=== PATIENT | male | born 1940 | race African-American/Black ===

== ENCOUNTER 2018-08-05 10:26 | Day surgery (SDC) | payer MEDICARE ==
[~2018-08-05 10:26] MED LIST: CHONDR SU A NA/HYALUR INTRAOC KIT (SURGICARE) ONE; EPINEPHRINE INJ/PF 1 MG/1 ML AMPULE ONE; KETOROLAC TROMETHAMINE 0.45% 4 DROP/0.4 ML DROPERETTE OS PRN; LIDOCAINE 1% INJ-PF (10 MG/ML) 30 ML SDV ONE; MIDAZOLAM 2 MG/2 ML INJ ONE; TOBRAMYCIN SULFATE/DEXAMETH OPH OINTMENT 3.5 GM ONE
[2018-08-05] MEDS: TETRACAINE HCL 0.5% OPH SOLN 0.6 ML DROPERETTE OS PRN ×3 (10:41→11:09)
[2018-08-05] MEDS: BESIFLOXACIN HCL 0.6% OPH SUSP 5 ML BOTTLE OS PRN ×4 (10:42→11:30)
[2018-08-05] MEDS: TROPICAMIDE 1% OPH SOLN 3 ML OS PRN ×3 (10:42→10:59)
[2018-08-05] MEDS: CYCLOPENTOLATE 0.2%/PHENYLEPHRINE 1% OPH SOLN 2 ML OS PRN ×3 (10:42→10:59)
== END 2018-08-05 12:10 | disposition home or self-care (01) ==
LOC: SC 10:26
PROVIDERS: ATTEND Ophthalmology
DX: H25.12 Age-related nuclear cataract, left eye (principal); F17.210 Nicotine dependence, cigarettes, uncomplicated; I10 Essential (primary) hypertension; N40.0 Benign prostatic hyperplasia without lower urinary tract symptoms; E78.00 Pure hypercholesterolemia, unspecified; K21.9 Gastro-esophageal reflux disease without esophagitis; Z88.0 Allergy status to penicillin; Z79.899 Other long term (current) drug therapy; Z79.82 Long term (current) use of aspirin
CPT/HCPCS: 66984; V2630; J2250; J3490 ×3; A9270; J0171; 142

== ENCOUNTER → 2020-08-15 | Outpatient (CLI) | payer MEDICARE ==
--- NOTE | 2020-08-15 20:09 | XCELERA REPORT ---
[address] [address] Transthoracic Echocardiogram Report Name: CAROLE CAMARILLO Age: 79 yrs Gender: Male : 1940 Patient Status: Outpatient Patient Location: Study Date: 08/15/2020 03:04 PM History: HTN PVC Height: 72 in Weight: 175 lb BSA: 2.0 m2 Procedure: A complete two-dimensional transthoracic echocardiogram was performed (2D, M-mode, spectral and color flow Doppler). The study was technically difficult with many images being suboptimal in quality. Reason For Study: HTN Ordering Physician: DIONI DURAN Performed By: Tomasz Ramirez Interpretation Summary Left ventricular systolic function is mildly reduced. The Ejection Fraction estimate is 45-50% There is a trace amount of mitral regurgitation There is no aortic valve stenosis There is a mild amount of aortic regurgitation There is a trace amount of tricuspid regurgitation Right ventricular systolic pressure is estimated to be within upper limit of normal. There is no pericardial effusion. MMode/2D Measurements & Calculations RVDd: 3.1 cm LVIDd: 5.9 cm FS: 22.8 % Ao root diam: 3.6 cm IVSd: 0.88 cm LVIDs: 4.5 cm EDV(Teich): 169.9 ml Ao root area: 10.4 cm2 LVPWd: 0.93 cm ESV(Teich): 93.2 ml LA dimension: 2.6 cm EF(Teich): 45.2 % Doppler Measurements & Calculations MV E max qiana: MV P1/2t max qiana: Ao V2 max: AI max qiana: 56.9 cm/sec 57.5 cm/sec 140.0 cm/sec 351.6 cm/sec MV A max qiana: MV P1/2t: 101.4 msec Ao max PG: AI max P.7 cm/sec MVA(P1/2t): 2.2 cm2 7.8 mmHg 49.4 mmHg MV E/A: 0.66 MV dec slope: AI dec slope: 178.8 cm/sec2 166.2 cm/sec2 AI P1/2t: MV dec time: 575.9 msec 0.34 sec LV V1 max PG: PA V2 max: PI end-d qiana: TR max qiana: 3.6 mmHg 68.6 cm/sec 66.5 cm/sec 249.0 cm/sec LV V1 max: PA max P.9 mmHg TR max P.2 cm/sec 24.8 mmHg LV dP/dt: 568.0 mmHg/s AV P1/2t-pr_phl: MV P1/2t-pr_phl: 575.9 msec 101.4 msec Left Ventricle The left ventricle is mildly dilated. There is mild concentric left ventricular hypertrophy. Left ventricular systolic function is mildly reduced. The Ejection Fraction estimate is 45-50%. Doppler measurements suggest impaired left ventricular relaxation, which is associated with grade I/IV or mild diastolic dysfunction. There is borderline global hypokinesis of the left ventricle. Right Ventricle The right ventricle is normal in size and function. Atria The right atrium is normal. The left atrial size is normal. The interatrial septum is intact with no evidence for an atrial septal defect. There is no Doppler evidence for an interatrial shunt. Mitral Valve The mitral valve is grossly normal. There is no evidence of mitral valve prolapse. There is no mitral valve stenosis. There is a trace amount of mitral regurgitation. Aortic Valve The aortic valve is sclerotic and shows some degree of functional abnormality. The aortic valve opens well. The aortic valve is trileaflet. There is no aortic valve stenosis. There is a mild amount of aortic regurgitation. Tricuspid Valve The tricuspid valve is normal in structure and function. There is a trace amount of tricuspid regurgitation. Right ventricular systolic pressure is estimated to be within upper limit of normal. Pulmonic Valve The pulmonic valve is normal in structure and function. There is no pulmonic valvular stenosis. There is a mild amount of pulmonic regurgitation. Great Vessels The aortic root is normal size. Effusions There is no pericardial effusion. Electronically signed by: Dioni alexis 08/15/2020 08:08 PM CC: DIONI DURAN Anil
== END ==
LOC: SP 14:39
PROVIDERS: ATTEND Internal Medicine
DX: I10 Essential (primary) hypertension (principal); I49.3 Ventricular premature depolarization
CPT/HCPCS: 93306